=== PATIENT | female | born 1965 | race Asian ===

== ENCOUNTER 2018-03-10 08:07 | Day surgery (SDC) | payer MEDICAID ==
[~2018-03-10] VITALS: Ht 165.1 cm; Wt 58.5 kg
[2018-03-10] MEDS ORDERED: LIDOCAINE 2% 100 MG/5 ML UJET TP ONE (10:53)
[2018-03-10] MEDS ORDERED: KETOROLAC 30 MG/ML VIAL ONE (10:53)
== END 2018-03-10 11:45 | disposition home or self-care (01) ==
LOC: MDS 08:07 → MMU 08:09 → MDS 11:45
PROVIDERS: ATTEND Internal Medicine Gastroenterology
DX: Z12.11 Encounter for screening for malignant neoplasm of colon (principal); D12.2 Benign neoplasm of ascending colon; K64.8 Other hemorrhoids; E78.5 Hyperlipidemia, unspecified
CPT/HCPCS: 81025; J1885